=== PATIENT | female | born 1930 | race Caucasian/White ===

== ENCOUNTER 2018-09-10 05:09 | Emergency (ER) | payer MEDICARE, OTHER ==
[2018-09-10 05:24] VITALS: BP 149/72
--- NOTE | 2018-09-10 06:02 | EDM.PDOC ---
ED HPI GENERAL MEDICAL PROBLEM - General Chief Complaint: Upper Extremity Injury/Pain Stated Complaint: RIGHT ARM PAIN Time Seen by Provider: 09/10/18 05:58 Source of Information: Reports: Patient History Limitations: Reports: No Limitations - History of Present Illness INITIAL COMMENTS - FREE TEXT/NARRATIVE: pt woke up about 3 am with sig rt shoulder and post cervical pain. She had the flu about 3 days ago with alot of vomiting and diarrhea and since that time she has had pain accross the upper back area. She did take a asa and got some relief of the pain. She states the pain is still a 5-6. She did not fall or injure herself. 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: has 3 children - Infectious Disease History Other Infectious Disease History: unknown Social & Family History - Family History Family Medical History: Noncontributory - Tobacco Use Smoking Status *Q: Never Smoker - Caffeine Use Caffeine Use: Reports: None - Living Situation & Occupation Living situation: Reports: , with Spouse Occupation: Retired Review of Systems - Review of Systems Review Of Systems: See Below Constitutional: Reports: No Symptoms Eyes: Reports: No Symptoms Ears: Reports: No Symptoms Nose: Reports: No Symptoms Mouth/Throat: Reports: No Symptoms Respiratory: Reports: No Symptoms Cardiovascular: Reports: No Symptoms GI/Abdominal: Reports: No Symptoms Genitourinary: Reports: No Symptoms Musculoskeletal: Reports: Other ( pain in the rt shoulder and rt arm area. ) Skin: Reports: No Symptoms ED EXAM, GENERAL - Physical Exam Exam: See Below Free Text/Narrative:: pt arrived complaining of pain in the rt arm shoulder and rt post cervical area. She has not had a fall. She did have the flu just a few days ago. Exam Limited By: No Limitations General Appearance: Alert, Moderate Distress Ears: Normal TMs Nose: Normal Inspection Throat/Mouth: Normal Inspection Head: Atraumatic Neck: Other (pt is very tender in the rt post cervical area with considerable muscle spasm. ) Respiratory/Chest: No Respiratory Distress Cardiovascular: Regular Rate, Rhythm GI/Abdominal: Soft, Non-Tender (Female) Exam: Deferred Rectal (Female) Exam: Deferred Back Exam: Other ( pt is tender between the shoulder blades and in the rt post cervical area. ) Extremities: Other ( Pt has tender areas in the shoulder particularly in the deltoid insertion area. ) Neurological: Alert, Oriented, Normal Cognition Psychiatric: Anxious Course - Vital Signs Last Recorded V/S: Last Vital Signs Temp 34.4 C L 09/10/18 05:23 Pulse 70 09/10/18 05:23 Resp 18 09/10/18 05:23 BP 149/72 H 09/10/18 05:23 Pulse Ox 96 09/10/18 05:23 - Orders/Labs/Meds Orders: Active Orders 24 hr Category Date Time Status EKG Documentation Completion [RC] ASDIRECTED Care 09/10/18 06:57 Active EKG 12 Lead [EK] Routine Ther 09/10/18 05:37 Ordered Labs: Laboratory Tests 09/10/18 09/10/18 Range/Units 06:00 06:05 WBC 5.6 (4.5-11.0) K/uL RBC 4.59 (3.30-5.50) M/uL Hgb 14.5 (12.0-15.0) g/dL Hct 44.5 (36.0-48.0) % MCV 97 (80-98) fL MCH 32 H (27-31) pg MCHC 33 (32-36) % Plt Count 179 (150-400) K/uL Neut % (Auto) 59 (36-66) % Lymph % (Auto) 23 L (24-44) % Davidson % (Auto) 15 H (2-6) % Eos % (Auto) 3 (2-4) % Baso % (Auto) 1 (0-1) % Sodium 141 (140-148) mmol/L Potassium 3.9 (3.6-5.2) mmol/L Chloride 106 (100-108) mmol/L Carbon Dioxide 27 (21-32) mmol/L Anion Gap 8.2 (5.0-14.0) mmol/L BUN 15 (7-18) mg/dL Creatinine 1.0 (0.6-1.0) mg/dL Est Cr Clr Drug Dosing 38.50 mL/min Estimated GFR (MDRD) 53 L (>60) Glucose 93 (74-106) mg/dL Calcium 9.0 (8.5-10.1) mg/dL Total Bilirubin 0.4 D (0.2-1.0) mg/dL AST 23 (15-37) U/L ALT 22 (12-78) U/L Alkaline Phosphatase 63 (46-116) U/L Total Protein 6.5 (6.4-8.2) g/dL Albumin 3.2 L (3.4-5.0) g/dL Globulin 3.3 (2.3-3.5) g/dL Albumin/Globulin Ratio 1.0 L (1.2-2.2) Meds: Medications Discontinued Medications Generic Name Dose Route Start Last Admin Trade Name Freq PRN Reason Stop Dose Admin Cyclobenzaprine HCl 5 mg 09/10/18 06:42 09/10/18 06:59 Flexeril PO 09/10/18 06:43 Not Given ONETIME ONE Ketorolac Tromethamine 60 mg 09/10/18 06:13 09/10/18 06:33 Toradol IM 09/10/18 06:14 60 mg ONETIME ONE Administration - Re-Assessments/Exams Free Text/Narrative Re-Assessment/Exam: 09/10/18 06:40 pt had xrays done of the shoulder and cervical area. The lower cervical spine showed sig degenerative changes. She had a ekg which did not show acute changes. She was found to be very tender. Pt was given torodol 60mg im. She was also given flexeril 5 mg po. Departure - Departure Time of Disposition: 07:05 Disposition: Home, Self-Care 01 Condition: Fair Clinical Impression: Cervical paraspinal muscle spasm - Discharge Information Instructions: Muscle Cramps and Spasms, [id number] Referrals: PCP,None [Primary Care Provider] - Forms: ED Department Discharge Care Plan Goals: moist warm packs to the rt post cervical area and the rt shoulder. naprosyn 500mg bid for the next 4-5 days, norco 5/325 q6h 1/2 to 1 tab q6h prn for severe pain, flexeril 10mg 1/2 tab hs to relax muscles. - My Orders Last 24 Hours: My Active Orders 09/10/18 05:37 EKG 12 Lead [EK] Routine 09/10/18 06:57 EKG Documentation Completion [RC] ASDIRECTED - Assessment/Plan Last 24 Hours: My Active Orders 09/10/18 05:37 EKG 12 Lead [EK] Routine 09/10/18 06:57 EKG Documentation Completion [RC] ASDIRECTED
[2018-09-10] MEDS ORDERED: Ketorolac 60 MG/2 ML SDV IM ONE (06:13)
[2018-09-10] MEDS ORDERED: Cyclobenzaprine 10 MG Tab PO ONE (06:42)
--- NOTE | 2018-09-10 07:16 | CRLCR ---
INDICATION: TECHNIQUE: Cervical spine 5 view. COMPARISON: None FINDINGS: Disc space narrowing and spurring C5-6 with bilateral bony foraminal stenosis and mild degenerative retrolisthesis of C5 on C6. No compression fracture or facet malalignment. Prevertebral soft tissues normal. 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 Dictated by Konstantin Major MD @ Sep 10 2018 7:12AM Signed by Dr. Konstantin Major @ Sep 10 2018 7:14AM
--- NOTE | 2018-09-10 07:18 | CRLCR ---
Indication: Pain Technique: Right shoulder 3 views. Comparison: None Findings: Joint space narrowing and spurring at the acromioclavicular joint including inferior osteophytes. Osteopenia. No fracture or dislocation. Intact visualized ribs. No soft tissue calcifications. Impression: Moderate acromioclavicular degenerative joint disease. Dictated by Konstantin Major MD @ Sep 10 2018 7:15AM Signed by Dr. Konstantin Major @ Sep 10 2018 7:16AM
== END 2018-09-10 07:04 | disposition home or self-care (01) ==
LOC: JP.ED 05:09
DX: M62.830 Muscle spasm of back (principal)
CPT/HCPCS: 36415; 72050; 73030; 80053; 85025; 93005; 96372; 99284; J1885